=== PATIENT | male | born 1980 ===

== ENCOUNTER 2019-03-04 19:36 | Emergency (ER) | payer OTHER ==
[~2019-03-04] VITALS: Ht 175.3 cm; Wt 77.1 kg
[2019-03-04] MEDS ORDERED: LOTREL 10-40 M1 EACH (19:56)
== END 2019-03-04 22:18 | disposition home or self-care (01) ==
LOC: ER 19:36
DX: N43.2 Other hydrocele (principal)

== ENCOUNTER 2019-06-07 22:04 | Emergency (ER) | payer OTHER ==
[~2019-06-07] VITALS: Ht 177.8 cm; Wt 86.2 kg
[~2019-06-07 22:04] MED LIST: LOTREL 10-40 M1 EACH
[2019-06-07] MEDS ORDERED: TOPROL XL25 M1 (22:28)
[2019-06-08] MEDS ORDERED: FLONASE16 GM NASAL (03:42)
[2019-06-08] MEDS ORDERED: OSEL75CA PO (03:42)
[2019-06-08] MEDS ORDERED: ZYNCOF 20-400120 ML PO (03:43)
== END 2019-06-08 03:48 | disposition home or self-care (01) ==
LOC: ER 22:04
DX: M94.0 Chondrocostal junction syndrome [Tietze] (principal); J11.1 Influenza due to unidentified influenza virus with other respiratory manifestations; B34.9 Viral infection, unspecified

== ENCOUNTER 2023-01-22 19:44 | Emergency (ER) | payer OTHER ==
[~2023-01-22] VITALS: Ht 177.8 cm; Wt 88.9 kg
[~2023-01-22 19:44] MED LIST changes: +FLONASE16 GM NASAL; +OSEL75CA PO; +TOPROL XL25 M1; +ZYNCOF 20-400120 ML PO
== END 2023-01-22 23:00 | disposition home or self-care (01) ==
LOC: ER 19:44
DX: M25.562 Pain in left knee (principal); I10 Essential (primary) hypertension; M94.0 Chondrocostal junction syndrome [Tietze]; M77.32 Calcaneal spur, left foot; S93.492A Sprain of other ligament of left ankle, initial encounter; Y93.89 Activity, other specified; Y92.89 Other specified places as the place of occurrence of the external cause; V28.49XA Other motorcycle driver injured in noncollision transport accident in traffic accident, initial encounter; Y93.55 Activity, bike riding; Y92.413 State road as the place of occurrence of the external cause